=== PATIENT | male | born 1960 | race Caucasian/White ===

== ENCOUNTER 2024-12-11 00:23 | Day surgery (SDC) | payer BC, SELFPAY ==
[2024-11-23 14:05] VITALS: BMI 21.8
--- NOTE | 2024-12-10 15:32 | WPDANESEPPF ---
Anes - Initial Pre Proc Eval Procedure: Operation Date: 12/11/24 14:00 Proposed Procedures p Colonoscopy - Johan Mcnamara MD Date/Time: 12/10/24 15:32 Surgeon: Johan Mcnamara MD Pre Op Diagnosis: + Cologuard Patient Data Age: 64 Gender: M Height: 1.88 m Weight: 77.2 kg Allergies Allergy/AdvReac Type Severity Reaction Status Date / Time No Known Allergies Allergy Verified 12/11/24 12:11 Home Medications ?Medication ?Instructions ?Recorded ?Confirmed ?Type dorzolamide 22.3 mg-timolol 6.8 1 drp ophthalmic (eye) BID 09/25/20 12/11/24 History mg/mL eye drops netarsudil 0.02 %-latanoprost 1 drp EACH EYE DAILY 08/16/22 12/11/24 History 0.005 % eye drops (Rocklatan) meloxicam 15 mg tablet 15 mg PO DAILY #30 tabs 08/12/24 11/23/24 Rx loratadine 10 mg tablet See Rx Instructions .Route 09/14/24 12/11/24 Rx .COMPLEX #90 tabs atorvastatin 20 mg tablet See Rx Instructions .Route 09/18/24 12/11/24 Rx .COMPLEX #90 tabs Patient hx anesthesia problems: none Family hx anesthesia problems: none Results Review: All pre-operative results and documents have been reviewed as part of the pre-operative evaluation. [facility] Past Medical History Medical History Atypical nevi (~06/05/19) COVID-19 Elevated fasting blood sugar History of broken leg (~1989) Hyperlipidemia LDL goal <100 Surgical History Surgical History Hx of tonsillectomy [place] teeth extracted Family History Family History (Updated 08/20/24 @ 09:44 by Elinor Dennis PA-C) Mother Hypertension Grandparent Family history of malignant neoplasm of breast Sibling Primary cancer of kidney Atrial fibrillation in two siblings Social History Social History (Updated 09/04/24 @ 14:08 by Lori Warner [facility]) Smoking status: Former smoker Tobacco type: cigarettes Second hand tobacco smoke exposure: No Smoking end date: 11/21/00 Alcohol intake: current Drinks per week: 6 Alcohol use details: beer Substance use: never Substance use type: does not use Do You Feel Safe in your Home?: Yes Lack of Transportation: No Lack of Food: Never True Current Housing: I Have Housing Concerned About Future Housing: No Difficulty Paying Gas/Electric Bills: No Difficulty Paying for Meds: No Currently Unemployed: No Education: Bachelor's Degree Difficulty w/ Childcare or Family Care: No Living arrangements: with family Occupation/Education: retired Gender identity (if verbalized by the patient): Male Spiritual care concerns: No Agree to blood products: Yes Anes - Eval Final PreProcedure Day of Procedure 12/10/24 15:32 Patient weight: normal Heart: regular rate and rhythm Lungs: clear to auscultation and normal air movement Airway: Mallampati scale class II Neurological: alert and oriented Last oral intake: >/= 8 hours ASA classification: II Emergent: no Anesthetic plan: proceed Anesthesia type and monitoring: general GIVS and standard monitoring Results Review: All pre-operative results and documents have been reviewed as part of the pre-operative evaluation. Informed Consent: The patient's anesthetic plan and its attendant risks and benefits were discussed with the patient/family/POA. Questions were solicited and answers provided to the satisfaction of the patient/family/POA.
[2024-12-11 12:12] VITALS: BP 119/87; PULSE 89; RESP 14; TEMP 36; O2SAT 94
[2024-12-11] MEDS: LACTATED RINGERS 1,000 ML 150 ML IV CONT (12:20)
--- NOTE | 2024-12-11 12:36 | P.HP_ITS ---
History of Present Illness History of Present Illness Consent: Risks, benefits, and alternatives have been discussed and questions answered. Patient agrees to proceed with procedure. Chief complaint: + Cologuard Narrative: Shadi Ya is a 64 year old male here for first colonoscopy, + cologuard Review of Systems Review of Systems: All systems reviewed & are unremarkable except as noted in HPI and below PMFSH Past Medical History Medical History (Updated 12/11/24 @ 12:36 by Johan Mcnamara MD) Positive colorectal cancer screening using Cologuard test COVID-19 Atypical nevi (~06/05/19) Elevated fasting blood sugar Hyperlipidemia LDL goal <100 History of broken leg (~1989) Surgical History Surgical History [place] teeth extracted Hx of tonsillectomy Family History Family History (Updated 08/20/24 @ 09:44 by Elinor Dennis PA-C) Mother Hypertension Grandparent Family history of malignant neoplasm of breast Sibling Primary cancer of kidney Atrial fibrillation in two siblings Social History Social History (Updated 09/04/24 @ 14:08 by Loir Warner CMA) Smoking status: Former smoker Tobacco type: cigarettes Second hand tobacco smoke exposure: No Smoking end date: 11/21/00 Alcohol intake: current Drinks per week: 6 Alcohol use details: beer Substance use: never Substance use type: does not use Do You Feel Safe in your Home?: Yes Lack of Transportation: No Lack of Food: Never True Current Housing: I Have Housing Concerned About Future Housing: No Difficulty Paying Gas/Electric Bills: No Difficulty Paying for Meds: No Currently Unemployed: No Education: Bachelor's Degree Difficulty w/ Childcare or Family Care: No Living arrangements: with family Occupation/Education: retired Gender identity (if verbalized by the patient): Male Spiritual care concerns: No Agree to blood products: Yes Meds Home Medications and Allergies Home Medications ?Medication ?Instructions ?Recorded ?Confirmed ?Type dorzolamide 22.3 mg-timolol 6.8 1 drp ophthalmic (eye) BID 09/25/20 12/11/24 History mg/mL eye drops netarsudil 0.02 %-latanoprost 1 drp EACH EYE DAILY 08/16/22 12/11/24 History 0.005 % eye drops (Rocklatan) meloxicam 15 mg tablet 15 mg PO DAILY #30 tabs 08/12/24 11/23/24 Rx loratadine 10 mg tablet See Rx Instructions .Route 09/14/24 12/11/24 Rx .COMPLEX #90 tabs atorvastatin 20 mg tablet See Rx Instructions .Route 09/18/24 12/11/24 Rx .COMPLEX #90 tabs Allergies Allergy/AdvReac Type Severity Reaction Status Date / Time No Known Allergies Allergy Verified 12/11/24 12:11 Vital Signs Vital Signs - 24 hr 12/11/24 12:12 Temperature 96.8 F L Pulse Rate 89 Respiratory Rate 14 Blood Pressure 119/87 Pulse Oximetry 94 Oxygen Delivery Room Air Exam Const: General: comfortable and no acute distress HENMT: Face/Nose/Sinus: Normal nares present Eyes: General: appearance normal, both eyes and all related structures Neck: Neck: no JVD Resp: Auscultation: clear to auscultation bilaterally Cardio: Rate: regular rate Rhythm: regular rhythm GI: Inspection: non-distended GI Palp: Yes Soft to palpation Skin: General skin exam: normal color Neuro: General: gait normal Speech: normal speech Extrem: General: normal to inspection Psych: Mental Status: mental status grossly normal Assessment and Plan Assessment and plan (1) Positive colorectal cancer screening using Cologuard test: Code(s): R19.5 - Other fecal abnormalities Status: Acute Assessment and Plan: colonoscopy
[2024-12-11 13:02] VITALS: BP 127/96; PULSE 75; RESP 23; O2SAT 96
[2024-12-11 13:12] VITALS: BP 116/67; PULSE 68; RESP 18; O2SAT 98
[2024-12-11 13:22] VITALS: BP 106/67; PULSE 66; RESP 22; O2SAT 98
--- OUTSIDE RECORDS SUMMARY | 2024-12-13 15:10 | XMS_ITS | Clinical Summary ---
Author Organization [facility] Address [address] [place] [address]. [place], [place] [address] [place] [address] Care Team Providers Care Nail Galvanizer Name Role Phone Unavailable Primary Care Provider Unavailabl e Social History Tobacco Use Types Packs/Day Years Used Date Smoking Tobacco: Never Assessed Sex and Gender Information Value Date Recorded Sex Assigned at Not on file Legal Sex Male 6:07 PM SEWER CONNECTOR Gender Identity Not on file Sexual Orientation Not on file Plan of Treatment Health Maintenance Due Date Last Done Comments Colorectal Cancer Screening Colonoscopy (10 Years) 1961 Annual Physical 1964 Hepatitis C 1979 DTaP, Tdap and Td Vaccines ( 1 - Tdap) 1980 Zoster Vaccines (1 of 2) 2011 COVID-19 Vaccine (2023-2 5 season) 2024 Influenza Adult (#1) 2024 RSV Immunization or 60+ Years (1 - 1-dose 75+ series) 2036 Meningococcal Vaccine Aged Out No katheryn luci eligible based on patient's age to complete this topic Pneumococcal Vaccine: Pediat rics (0 to 5 Years) and At-Risk Patients (6 to 64 Years) Aged Out No longer eligible b ased on patient's age to complete this topic RSV Immunizations Under 20 Months Aged Out No longer eligible based on patient's age to complete this topic
--- OUTSIDE RECORDS SUMMARY | 2024-12-13 15:10 | XMS_ITS | Clinical Summary ---
Author Organization [facility] Address [address] [place] [address] Care Team Providers Care Gas Mask Inspector Name Role Phone Debo Miller MD Primary Care Provider [phone] Allergies No known active allergies Medications atorvastatin (LIPITOR) 20 mg tablet 4 Active loratadine (CLARITIN) 10 mg tablet TAKE 1 TABLET BY MOUTH DAILY NEEDED FOR ALLERGY SYMPTOMS 4 Active meloxicam (MOBIC) 15 mg tablet Take 1 tablet (15 mg total) by mouth daily 4 Active Rocklatan 0.02-0.005 % drops 4 Active dorzolamide-kings oloL (COSOPT) 22.3-6.8 mg/mL ophthalmic solution Administer 1 drop into both eyes 2 (two) times a day Active Active Problems No known active problems Encounters Date Type Department Care Team Description 11/16/2024 7:21 AM CLINICAL INFORMATICS DIRECTOR - 11/16/2024 11:59 PM [facility] Hospital Encounter [facility] Radiology at [address] [address] Calos Allison MD Chronic right shoulder pain Discharge Disposition: Discharge to home or self care 11/16/2024 7:19 AM CLINICAL INFORMATICS DIRECTOR - 11/16/2024 11:59 PM [facility] Hospital Encounter [facility] Radiology at [address] [address] Calos Allison MD Chronic right shoulder pain Discharge Disposition: Discharge to home or self care 10/15/2024 2:40 PM CLINICAL INFORMATICS DIRECTOR Office Visit [facility] Orthopaedic Surgery [address] [facility] 2nd Floor [address] [place] [phone] Royer Watkins MD Chronic right shoulder pain (Primary Dx) 10/15/2024 2:34 PM CLINICAL INFORMATICS DIRECTOR - 10/15/2024 11:59 PM CLINICAL INFORMATICS DIRECTOR Hospital Encounter [facility] [address] [place] [address] Royer Watkins MD Chronic right shoulder pain Discharge Disposition: Discharge to home or self care from Last 3 Months Surgical History Surgery Date Site/Laterality Comments TONSILLECTOMY as a child FLUORO GUIDED INJECTION SHOULDER RIGHT 11/16/2024 Ri ght FLUORO GUIDED ASPIRATION OR INJECTION INTERMEDIATE JOINT RIGHT 11/16/2024 Right Medical History Medical History Date Comments Glaucoma 11/21/2013 Family History Medical History Relation Name Comments Cancer Brother Aldo Ya Cancer Mother Temi Ya Relation Name Status Comments Brother Aldo Ya Mother Temi Ya Social History Tobacco Use Types Packs/Day Years Used Date Smoking Tobacco: Former Cigarettes 1.5 25 0 11/21/1976 - 2001 Smokeless Tobacco: Never Tobacco Cessation:Counseling Given: Not Answered Personal Safety Answer Date Recorded Have you ever been in or are you currently in a harmful physical or emotional relationship or is someone making you feel afraid or unsafe? Denies 11/16/2024 Sex and Gender Information Value Date Recorded Sex Assigned at Not on file Legal Sex Male 8:14 PM CLINICAL INFORMATICS DIRECTOR Gender Identity Not on file Sexual Orientation Not on file Obstetrics History Last Filed Vital Signs Vital Sign Reading Time Taken Comments Blood Pressure 131/86 11/16/2024 8:30 AM CLINICAL INFORMATICS DIRECTOR Pulse 62 11/16/2024 8:30 AM CLINICAL INFORMATICS DIRECTOR Temperature - - Respiratory Rate 16 11/16/2024 8:30 AM CLINICAL INFORMATICS DIRECTOR Oxygen Saturation 100% 11/16/2024 8:30 AM CLINICAL INFORMATICS DIRECTOR Inhaled Oxygen Concentration - - Weight 77.1 kg (170 lb) 11/16/2024 7:32 AM CLINICAL INFORMATICS DIRECTOR Height 188 cm (6' 2 ) 10/17/2024 10:54 AM CLINICAL INFORMATICS DIRECTOR Body Mass Index 21.83 10/17/2024 10:54 AM CLINICAL INFORMATICS DIRECTOR Plan of Treatment Health Maintenance Due Date Last Done Comments Colon Cancer Screening-Colonoscopy 1961 Depression Screening 1961 Hepatitis C Screening 1961 Prostate Cancer Screening-PSA 1961 DTaP/Tdap/Td Vaccine (1 - Tdap) 1972 Hepatitis B Screening 1979 Regular Well Visit/Exam 18-64 1979 Zoster Vaccine (1 of 2) 2011 Covid-19 Vaccine ( season) 2024 10/10/2023, 12/19/2021, 03/12/2021, Additional history exists Influenza Vaccine Completed 09/07/2024, , 08/16/2022, Additional history exists Pneumococcal vaccine <65 Aged Out No longer eligible based on patient's age to complete this topic Procedures Procedure Name Priority Date/Time Associated Diagnosis Comments FLUORO GUIDED ASPIRATION OR INJECTION INTERMEDIATE JOINT RIGHT Schedule Routine, Read Routine (OP Routine) 11/16/2024 8:22 AM CLINICAL INFORMATICS DIRECTOR Chronic right shoulder pain FLUORO GUIDED INJECTION SHOULDER RIGHT Schedule Routine, Read Routine (OP Routine) 11/16/2024 8:11 AM CLINICAL INFORMATICS DIRECTOR Chronic right shoulder pain XR SHOULDER RIGHT 2 OR MORE VIEWS Schedule Routine, Read Routine (OP Routine) 10/15/2024 2:39 PM CLINICAL INFORMATICS DIRECTOR Chronic right shoulder pain from Last 3 Months Results * FL Fluoro Guided Aspiration or Injection Intermediate Joint Right AC (ACROMIAL CLAVICULAR) (11/16/2024 8:22 AM CLINICAL INFORMATICS DIRECTOR) Narrative [facility] - 11/16/2024 8:22 AM CLINICAL INFORMATICS DIRECTOR The images from this study are not interpreted by Radiology. ??Please refer to the physician's procedure / OR operative note. us Royer Watkins MD IMG FLUOROSCOPY P ROCEDURES Final Result [facility] * FL Fluoro Guided Injection Shoulder Right (GLENOHUMERAL JOINT) (11/16/2024 8:11 AM CLINICAL INFORMATICS DIRECTOR) Narrative [facility] - 11/16/2024 8:11 AM CLINICAL INFORMATICS DIRECTOR The images from this study are not interpreted by Radiology. ??Please refer to the physician's procedure / OR operative note. us Royer Watkins MD IMG FLUOROSCOPY P ROCEDURES Final Result [facility] * XR Shoulder Right 2 or More Views (10/15/2024 2:39 PM CLINICAL INFORMATICS DIRECTOR) Anatomical Region Laterality Modality Upper Extremities, Shoulder Right Comp uted Radiography 10/15/2024 3:47 PM CLINICAL INFORMATICS DIRECTOR Impressions 10/15/2024 3:47 PM CLINICAL INFORMATICS DIRECTOR Moderate right acromioclavicular osteoarthritis. Electronically signed by: Royer Nguyen MD Narrative 10/15/2024 3:47 PM CLINICAL INFORMATICS DIRECTOR EXAMINATION: XR SHOULDER RIGHT 2 OR MORE VIEWS HISTORY: Right shoulder pain FINDINGS: No comparison. Moderate right acromioclavicular osteoarthritis. ??Mild associated soft tissue swelling. ??Normal alignment. ??No fracture or dislocation. The glenohumeral joint is normal. Procedure Note Royer Nguyen MD - 10/15/2024 EXAMINATION: XR SHOULDER RIGHT 2 OR MORE VIEWS HISTORY: Right shoulder pain FINDINGS: No comparison. Moderate right acromioclavicular osteoarthritis. Mild associated soft tissue swelling. Normal alignment. No fracture or dislocation. The glenohumeral joint is normal. IMPRESSION: Moderate right acromioclavicular osteoarthritis. Electronically signed by: Royer Nguyen MD us Royer Watkins MD IMG XR PROCEDURES Final Result from Last 3 Months Insurance BCBS FEDERAL [facility] FEDERAL Care Teams Gas Mask Inspector Relationship Specialty Start Date End Date Debo Miller MD [address] [place] [address] PCP - General Family Medicine 09/26/24
--- OUTSIDE RECORDS SUMMARY | 2024-12-13 15:10 | XMS_ITS | Referral Summary ---
Author Organization [facility] Address [address] [place] [address] Care Team Providers Care Crystal Cutter Name Role Phone Debo Miller MD Primary Care Provider Encounters Date Type Department Care Team Description 11/16/2024 7:21 AM HEALTH ADMINISTRATOR - 11/16/2024 11:59 PM HEALTH ADMINISTRATOR Hospital Encounter [facility] Radiology at [facility] Medicine [address] [place] [address] Calos Allison MD Chronic right shoulder pain Discharge Disposition: Discharge to home or self care 11/16/2024 7:19 AM HEALTH ADMINISTRATOR - 11/16/2024 11:59 PM HEALTH ADMINISTRATOR Hospital Encounter [facility] Radiology at [address] [address] Calos Allison MD Chronic right shoulder pain Discharge Disposition: Discharge to home or self care 10/15/2024 2:34 PM HEALTH ADMINISTRATOR - 10/15/2024 11:59 PM HEALTH ADMINISTRATOR Hospital Encounter [facility] [address] [place] [address] Royer Watkins MD Chronic right shoulder pain Discharge Disposition: Discharge to home or self care 10/15/2024 2:40 PM HEALTH ADMINISTRATOR Office Visit [facility] Orthopaedic Surgery [id number] [place] [address] [address] [place] [address] Royer Watkins MD Chronic right shoulder pain (Primary Dx) from Last 3 Months Allergies No known active allergies Medications atorvastatin [...] Active Active Problems No known active problems Social History Tobacco Use Types Packs/Day Years [...] on file Legal Sex Male 8:14 PM HEALTH ADMINISTRATOR Gender Identity Not on file Sexual Orientation Not on file Last Filed Vital Signs Vital Sign Reading Time Taken Comments Blood Pressure 131/86 11/16/2024 8:30 AM HEALTH ADMINISTRATOR Pulse 62 11/16/2024 8:30 AM HEALTH ADMINISTRATOR Temperature - - Respiratory Rate 16 11/16/2024 8:30 AM HEALTH ADMINISTRATOR Oxygen Saturation 100% 11/16/2024 8:30 AM HEALTH ADMINISTRATOR Inhaled Oxygen Concentration - - Weight 77.1 kg (170 lb) 11/16/2024 7:32 AM HEALTH ADMINISTRATOR Height 188 cm (6' 2 ) 10/17/2024 10:54 AM HEALTH ADMINISTRATOR Body Mass Index 21.83 10/17/2024 10:54 AM HEALTH ADMINISTRATOR Plan of Treatment Not on file Procedures Procedure Name Priority Date/Time Associated Diagnosis Comments FLUORO GUIDED ASPIRATION OR INJECTION INTERMEDIATE JOINT RIGHT Schedule Routine, Read Routine (OP Routine) 11/16/2024 8:22 AM HEALTH ADMINISTRATOR Chronic right shoulder pain FLUORO GUIDED INJECTION SHOULDER RIGHT Schedule Routine, Read Routine (OP Routine) 11/16/2024 8:11 AM HEALTH ADMINISTRATOR Chronic right shoulder pain XR SHOULDER RIGHT 2 OR MORE VIEWS Schedule Routine, Read Routine (OP Routine) 10/15/2024 2:39 PM HEALTH ADMINISTRATOR Chronic right shoulder pain from Last 3 Months Results * FL Fluoro Guided Aspiration or Injection Intermediate Joint Right AC (ACROMIAL CLAVICULAR) (11/16/2024 8:22 AM HEALTH ADMINISTRATOR) Narrative [facility] - 11/16/2024 8:22 AM HEALTH ADMINISTRATOR The images from this study are not interpreted by Radiology. ??Please refer to the physician's procedure / OR operative note. us Royer Watkins MD IM FLUOROSCOPY P ROCEDURES Final Result Performing Organization Address [facility] Phone Number [facility] * FL Fluoro Guided Injection Shoulder Right (GLENOHUMERAL JOINT) (11/16/2024 8:11 AM HEALTH ADMINISTRATOR) Narrative [facility] - 11/16/2024 8:11 AM HEALTH ADMINISTRATOR The images from this study are not interpreted by Radiology. ??Please refer to the physician's procedure / OR operative note. Royer Watkins MD [facility] FLUOROSCOPY P ROCEDURES Final Result Performing Organization Address [facility] Phone Number [facility] * XR Shoulder Right 2 or More Views (10/15/2024 2:39 PM HEALTH ADMINISTRATOR) Anatomical Region Laterality Modality Upper Extremities, Shoulder Right Comp uted Radiography 10/15/2024 3:47 PM HEALTH ADMINISTRATOR Impressions 10/15/2024 3:47 PM HEALTH ADMINISTRATOR Moderate right acromioclavicular osteoarthritis. Electronically signed by: Royer Nguyen MD Narrative 10/15/2024 3:47 PM HEALTH ADMINISTRATOR EXAMINATION: XR SHOULDER RIGHT 2 OR MORE [...] osteoarthritis. Electronically signed by: Royer Nguyen MD Royer Watkins MD IMG XR PROCEDURES Final Result from Last 3 Months Insurance [facility] FEDERAL [facility] FEDERAL Care Teams Crystal Cutter Relationship Specialty Start Date End Date eDbo Miller MD [address] [place] [address] PCP - General Family Medicine 09/26/24
--- OUTSIDE RECORDS SUMMARY | 2024-12-13 15:11 | XMS_ITS | Clinical Summary ---
Author Organization [facility] Address [address] [place] [address] Care Team Providers Care Shoveler Name Role Phone Unavailable Primary Care Provider Unavailabl e Encounters Date Type Department Care Team Description 09/19/2024 External Device Data ST[facility] ABSTRACTION Provider, Abstract from Last 3 Months Social History Tobacco Use Types Packs/Day Years Used Date Smoking Tobacco: Never Assessed Sex and Gender Information Value Date Recorded Sex Assigned at Not on file Legal Sex Male 1:59 PM CDT Gender Identity Not on file Sexual Orientation Not on file Plan of Treatment Health Maintenance Due Date Last Done Comments DTAP/TDAP/TD VACCINES (1 - Tdap) 1980 COLORECTAL SCREENING 2006 Colorectal Cancer Screening 2006 FIT-DNA Q 3 years 2006 FIT/FOBT Q 1 year 2006 Flex Sig/CT Colonography Q 5 years 2006 ZOSTER VACCINE (1 of 2) 2011 INFLUENZA VACCINE (#1) 2024 RSV VACCINE (60+ or ) (1 - 1-dose 75+ series) 2036 PNEUMOCOCCAL VACCINE 0-64 YEARS Aged Out No longer eligible based on patient's age to complete this topic Insurance BS FEDERAL
== END 2024-12-11 13:29 | disposition home or self-care (01) ==
PROVIDERS: PCP Family Medicine; Visit Provider Internal Medicine Gastroenterology
PROC: 0DJD8ZZ Inspection of Lower Intestinal Tract, Via Natural or Artificial Opening Endoscopic (ICD-10-PCS; CPT 45378; principal; 2024-12-11 14:00)
DX: R19.5 Other fecal abnormalities (principal); D12.3 Benign neoplasm of transverse colon; K63.5 Polyp of colon; K57.30 Diverticulosis of large intestine without perforation or abscess without bleeding; K64.8 Other hemorrhoids; Z87.891 Personal history of nicotine dependence
CPT/HCPCS: 45385; 88305; J2003; J2704; J7120